=== PATIENT | female | born 1990 | race African-American/Black ===

== ENCOUNTER 2021-01-26 12:34 | Emergency (ER) | payer OTHER ==
[~2021-01-26] VITALS: Ht 162.6 cm; Wt 56.7 kg
[2021-01-26] MEDS ORDERED: PERCOCET PO (13:17)
[2021-01-26 13:38] VITALS: BP 115/54
== END 2021-01-26 13:39 | disposition home or self-care (01) ==
LOC: M.ERS 12:34
DX: G89.29 Other chronic pain (principal); M79.604 Pain in right leg; M79.605 Pain in left leg; R10.10 Upper abdominal pain, unspecified